=== PATIENT | female | born 1995 | race Caucasian/White ===

== ENCOUNTER 2023-11-07 19:39 | Day surgery (SDC) | payer BC, SELFPAY ==
[2023-11-07] VITALS (12 sets, daily range): BP systolic 98–134; BP diastolic 55–83; BMI 31.5
[2023-11-07 10:07] LABS: % Basophils 0.5 % (0-2); % Eosinophils 0.8 % (0-6); % Immature Granulocytes 0.3 % (0-0.5); % Lymphocytes 10.1 % (20.5-51.1); % Monocytes 5.3 % (1.7-9.3); Absolute Basophils 0.1 10^3/uL (0-0.2); Absolute Eosinophils 0.1 10^3/uL (0-0.7); Absolute Immature Granulocytes 0.1 10^3/uL (0-0.05); Absolute Lymphocytes 1.6 10^3/uL (1.2-3.4); Absolute Monocytes 0.8 10^3/uL (0.1-0.6); Absolute Neutrophils 12.7 10^3/uL (1.4-6.5); Hematocrit 41.4 % (37.0-47.0); Hemoglobin 14.1 g/dL (12.0-16.0); Mean Corp Hgb Conc. 34.1 g/dL (33.0-37.0); Mean Corpuscular Hgb 30.4 pg (27.0-31.0); Mean Corpuscular Volume 89.2 fL (81.0-99.0); Mean Platelet Volume 10.2 fL (7.4-10.4); Nucleated Red Blood Cells % 0 %; Platelet Count 284 10^3/uL (130-400); Red Blood Cell Count 4.64 10^6/uL (4.20-5.40); Red Cell Dist. Width 12.6 % (11.5-14.5); White Blood Cell Count 15.4 10^3/uL (4.8-10.8)
--- NOTE | 2023-11-07 10:19 | ED.GENMED ---
History of Present Illness
<Niharika English PA-C - Last Filed: 11/07/23 17:44>
General
Chief Complaint: Abdominal Pain
Source: patient
Exam Limitations: none
Time Seen by Provider: 11/07/23 09:38
Nursing documentation reviewed up to this point in time: agreed with
Travel History
Have you had any contact with someone who has COVID-19?: No
Do you have any symptoms of coronavirus? Fever > 100 degrees, chills, cough, shortness of breath, sore throat, loss of taste or smell, muscle aches, or headache?: No
History of Present Illness
History of Present Illness:
Patient is a 28-year-old female with no significant past medical history presenting to the emergency department for evaluation of lower abdominal pain. Patient states she noticed periumbilical abdominal pain starting around 10 PM last night with
acute worsening around 2/3 AM. She reports associated nausea and multiple episodes of vomiting. She does report feeling somewhat chilly last night but denies any known fever.
Patient denies any urinary symptoms. Patient denies any chest pain, shortness of breath, diarrhea, constipation. She denies any abnormal vaginal bleeding or discharge. 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
movement. She also endorses somewhat decreased appetite yesterday.
Patient has no history of abdominal surgeries. Patient denies any history of ovarian cysts.
Past History
<Niharika English PA-C - Last Filed: 11/07/23 17:44>
Past History
ED Past Medical History: None
ED Past Surgical History: None
Social History
Tobacco: Non-smoker
Alcohol: None
Drug: None
Personal: Single
Living: with family
Employment: Employed
Family History
Family History: Other (Noncontributory)
Phy Exam
<Niharika English PA-C - Last Filed: 11/07/23 17:44>
Physical Exam
Physical Exam:
General: Mild distress due to pain, nontoxic appearing
Vitals: Vital signs stable, afebrile
HEENT: Atraumatic, normocephalic; pupils equal round and reactive to light bilaterally, extraocular muscle intact, protecting airway, uvula midline
Neck: appears supple, trachea midline
CV: Regular rate and rhythm, heart sounds normal, no evidence of cyanosis
Resp: No evidence of respiratory distress, lungs clear bilaterally
Abd: Soft, significantly tender in lower abdomen worse in right lower quadrant without rebound tenderness or guarding, non-distended; no CVA tenderness
Extremities: No deformities, no evidence of cyanosis or edema
Neuro: alert and oriented; grossly intact
Psych: Normal affect
Skin: Intact, no rashes
Course
<Niharika English PA-C - Last Filed: 11/07/23 17:44>
Orders/Labs/Results
Orders:
Orders
11/07/23 09:50
Test Result ONCE
11/07/23 09:52
CMP [Comprehensive Metabolic Panel] Urgent
Complete Blood Count/With Diff Urgent
HCG, Serum Qualitative Screen Urgent
Lipase Urgent
11/07/23 10:17
0.9% Sodium Chloride 1000 ml [Nss] 1,000 ml IV BOLUS
Ketorolac [Toradol] 15 mg IV NOW STA
Ondansetron Injectable [Zofran] 4 mg IV NOW STA
11/07/23 10:29
US Pelvis W Transvag Combined Urgent
Reason For Exam: right lower abdominal pain; r/o torsion
11/07/23 10:38
Urinalysis Reflex To Culture Urgent
Date Specimen was Collected: 11/07/23
Time Specimen was Collected: 10:34
11/07/23 12:07
0.9% Sodium Chloride 1000 ml [Nss] 1,000 ml IV BOLUS
11/07/23 14:44
CT Abd/Pel (IV only)-DH only Urgent
Comment:
Reason For Exam: RLQ abdominal pain + nausea
11/07/23 16:49
Ondansetron Injectable [Zofran] 4 mg IV NOW STA
11/07/23 17:01
Piperacillin/Tazo 3.375 Gram [Zosyn] 3.375 gram in 50 ml IV NOW
11/07/23 17:11
0.9% Sodium Chloride 1000 ml [Nss] 1,000 ml IV BOLUS
Abnormal Lab Results
11/07/23
09:52
WBC 15.4 H 10^3/uL
(4.8-10.8)
Abs Immat Gran (auto) 0.1 H 10^3/uL
(0-0.05)
Absolute Neuts (auto) 12.7 H 10^3/uL
(1.4-6.5)
Absolute Monos (auto) 0.8 H 10^3/uL
(0.1-0.6)
Neutrophils % 83.0 H %
(42.2-75.2)
Lymphocytes % 10.1 L %
(20.5-51.1)
Glucose 121 H mg/dl
(70-99)
Total Bilirubin 1.8 H mg/dl
(0.2-1.3)
11/07/23 09:52
11/07/23 09:52
Vital Signs
Initial and Last Documented VS:
Initial Vital Signs
Temp Pulse Resp BP Pulse Ox
98.2 F 65 16 126/75 99
11/07/23 08:53 11/07/23 08:53 11/07/23 08:53 11/07/23 08:53 11/07/23 08:53
Last Documented Vital Signs
Temp Pulse Resp BP Pulse Ox
98.1 F 90 16 134/83 100
11/07/23 17:15 11/07/23 17:08 11/07/23 14:21 11/07/23 17:08 11/07/23 14:21
Melvinlt;Migue Israel DO - Last Filed: 11/07/23 10:33>
Orders/Labs/Results
Orders:
Orders
11/07/23 09:50
Test Result ONCE
11/07/23 09:52
CMP [Comprehensive Metabolic Panel] Urgent
Complete Blood Count/With Diff Urgent
HCG, Serum Qualitative Screen Urgent
Lipase Urgent
11/07/23 10:17
0.9% Sodium Chloride 1000 ml [Nss] 1,000 ml IV BOLUS
Ketorolac [Toradol] 15 mg IV NOW STA
Ondansetron Injectable [Zofran] 4 mg IV NOW STA
11/07/23 10:29
US Pelvis W Transvag Combined Urgent
Reason For Exam: right lower abdominal pain; r/o torsion
11/07/23 10:38
Urinalysis Reflex To Culture Urgent
Date Specimen was Collected: 11/07/23
Time Specimen was Collected: 10:34
11/07/23 12:07
0.9% Sodium Chloride 1000 ml [Nss] 1,000 ml IV BOLUS
11/07/23 14:44
CT Abd/Pel (IV only)-DH only Urgent
Comment:
Reason For Exam: RLQ abdominal pain + nausea
11/07/23 16:49
Ondansetron Injectable [Zofran] 4 mg IV NOW STA
11/07/23 17:01
Piperacillin/Tazo 3.375 Gram [Zosyn] 3.375 gram in 50 ml IV NOW
11/07/23 17:11
0.9% Sodium Chloride 1000 ml [Nss] 1,000 ml IV BOLUS
Abnormal Lab Results
11/07/23
09:52
WBC 15.4 H 10^3/uL
(4.8-10.8)
Abs Immat Gran (auto) 0.1 H 10^3/uL
(0-0.05)
Absolute Neuts (auto) 12.7 H 10^3/uL
(1.4-6.5)
Absolute Monos (auto) 0.8 H 10^3/uL
(0.1-0.6)
Neutrophils % 83.0 H %
(42.2-75.2)
Lymphocytes % 10.1 L %
(20.5-51.1)
Glucose 121 H mg/dl
(70-99)
Total Bilirubin 1.8 H mg/dl
(0.2-1.3)
11/07/23 09:52
11/07/23 09:52
Vital Signs
Initial and Last Documented VS:
Initial Vital Signs
Temp Pulse Resp BP Pulse Ox
98.2 F 65 16 126/75 99
11/07/23 08:53 11/07/23 08:53 11/07/23 08:53 11/07/23 08:53 11/07/23 08:53
Last Documented Vital Signs
Temp Pulse Resp BP Pulse Ox
98.1 F 90 16 134/83 100
11/07/23 17:15 11/07/23 17:08 11/07/23 14:21 11/07/23 17:08 11/07/23 14:21
<Rico Duncan, - Last Filed: 11/07/23 17:01>
Orders/Labs/Results
Orders:
Orders
11/07/23 09:50
Test Result ONCE
11/07/23 09:52
CMP [Comprehensive Metabolic Panel] Urgent
Complete Blood Count/With Diff Urgent
HCG, Serum Qualitative Screen Urgent
Lipase Urgent
11/07/23 10:17
0.9% Sodium Chloride 1000 ml [Nss] 1,000 ml IV BOLUS
Ketorolac [Toradol] 15 mg IV NOW STA
Ondansetron Injectable [Zofran] 4 mg IV NOW STA
11/07/23 10:29
US Pelvis W Transvag Combined Urgent
Reason For Exam: right lower abdominal pain; r/o torsion
11/07/23 10:38
Urinalysis Reflex To Culture Urgent
Date Specimen was Collected: 11/07/23
Time Specimen was Collected: 10:34
11/07/23 12:07
0.9% Sodium Chloride 1000 ml [Nss] 1,000 ml IV BOLUS
11/07/23 14:44
CT Abd/Pel (IV only)-DH only Urgent
Comment:
Reason For Exam: RLQ abdominal pain + nausea
11/07/23 16:49
Ondansetron Injectable [Zofran] 4 mg IV NOW STA
11/07/23 17:01
Piperacillin/Tazo 3.375 Gram [Zosyn] 3.375 gram in 50 ml IV NOW
11/07/23 17:11
0.9% Sodium Chloride 1000 ml [Nss] 1,000 ml IV BOLUS
Abnormal Lab Results
11/07/23
09:52
WBC 15.4 H 10^3/uL
(4.8-10.8)
Abs Immat Gran (auto) 0.1 H 10^3/uL
(0-0.05)
Absolute Neuts (auto) 12.7 H 10^3/uL
(1.4-6.5)
Absolute Monos (auto) 0.8 H 10^3/uL
(0.1-0.6)
Neutrophils % 83.0 H %
(42.2-75.2)
Lymphocytes % 10.1 L %
(20.5-51.1)
Glucose 121 H mg/dl
(70-99)
Total Bilirubin 1.8 H mg/dl
(0.2-1.3)
11/07/23 09:52
11/07/23 09:52
Vital Signs
Initial and Last Documented VS:
Initial Vital Signs
Temp Pulse Resp BP Pulse Ox
98.2 F 65 16 126/75 99
11/07/23 08:53 11/07/23 08:53 11/07/23 08:53 11/07/23 08:53 11/07/23 08:53
Last Documented Vital Signs
Temp Pulse Resp BP Pulse Ox
98.1 F 90 16 134/83 100
11/07/23 17:15 11/07/23 17:08 11/07/23 14:21 11/07/23 17:08 11/07/23 14:21
<Niharika English PA-C - Last Filed: 11/07/23 17:44>
MDM/Problems Addressed
Differential Diagnosis Includes:
Appendicitis, diverticulitis, ovarian cyst, pyelonephritis, mesenteric adenitis, UTI, constipation, NA ovarian torsion
MDM/Problems Addressed:
Patient is a 28-year-old female presenting for evaluation of acute onset lower abdominal pain with associated nausea and vomiting. No known fevers. Patient is afebrile with stable vital signs on arrival. Physical exam as document above. She does
have significant tenderness in her lower abdomen worse in right lower quadrant. No rebound tenderness or guarding. No history of prior abdominal surgeries. Given significant tenderness in right lower quadrant�concern for appendicitis or ovarian
etiology. Will check basic labs, lipase, , urine. Will perform pelvic ultrasound first to rule out ovarian torsion and plan to proceed with CAT scan if negative. IV fluids, Zofran, Toradol for pain.
11: 11 AM- In to reassess patient. She is feeling much better following Toradol and Zofran. No episodes of vomiting since arrival to emergency department. Ultrasound pending
2: 30: At patient's bedside to reassess. Still reports improvement of pain than earlier. Abdominal exam remains consistent with prior. Soft but significantly tender in lower abdomen, worse in right lower quadrant. Ultrasound is negative for any
evidence ovarian torsion or other acute pelvis process. Will order CT of abdomen/pelvis.
5:00 p.m: CT scan shows acute appendicitis without any evidence of free air or abscess. Will start IV Zosyn. Discussed with general surgeon. She will go to the OR tonight. IV fluids, IV antibiotics, n.p.o. Discussed with patient. Patient
admitted to general surgery service.
Chronic conditions affecting care:
N/A
Acute Exacerbation and/or Progression of Chronic Illness:
N/A
<Niharika English PA-C - Last Filed: 11/07/23 17:44>
*Radiology
Radiology exam reviewed: preliminary read by ED provider and radiology read reviewed
*Pulse Oximetry
Patient hypoxic: no
*Trim Attacher Interpretation
Rate: Trim Attacher- N/A
*Critical Care Note
Total Time (30-74mins, 75-104mins- exclusive of procedures): Not Applicable
<Niharika English PA-C - Last Filed: 11/07/23 17:44>
Patient Management
Discussion with other providers: Emergency Veterinary Assistant (Dr. Avendaño-General surgery)
Escalation/DeEscalation of care consider admission/obs:
Acute appendicitis�admit to general surgery for appendectomy
<Rico Duncan DO - Last Filed: 11/07/23 17:01>
Update Note
Update Note:
Ultrasound negative. CT reveals appendicitis. Surgical consultation. IV antibiotics. Admit
ED Attending Note
<Niharika English PA-C - Last Filed: 11/07/23 17:44>
-
Portions of this chart may have been created with voice recognition software.� Occasional wrong word or��sound alike� substitutions may have occurred due to the inherent limitations of voice recognition software.
<Migue Israel DO - Last Filed: 11/07/23 10:33>
ED Attending Note
Patient seen and examined by attending physician: Yes
I performed the substantive portion of visit, reviewed & personally made and approve the management plan that is documented in note by myself or REBEL.: Yes
ED Attending Note:
I agree with Nikki's note.
Patient complaining of lower abdominal pain. Pain began last night. Pain is quite significant. Last menstrual period was a week ago. She states it was normal.
General: Awake, Alert, Oriented X3. Appears somewhat uncomfortable
Vitals: unremarkable
Head: Atraumatic
Eyes: Pupils equal, EOMI
Throat: Airway intact, no exudates
Neck: Trachea midline
Lungs: Clear and equal b/l
Heart: Regular rate, no murmurs
Abd: Soft, significant tenderness right lower quadrant, No pulsatile mass
Neuro: Nonfocal
Skin: Warm, dry, no rash
Extremities: pulses equal b/l, no edema
Differential includes ovarian torsion, ruptured ovarian cyst, hemorrhagic ovarian cyst, appendicitis
Will start with an ultrasound to hopefully avoid radiation exposure if this will be diagnostic. If that is nondiagnostic and want to proceed to CAT scan to rule out appendicitis
Discharge Plan
Departure
Patient Disposition: Admit
Date of Disposition: 11/07/23
Time of Disposition: 17:11
Presentation/result/management discussed w/ accepting MD/DO: Dr. Avendaño
Discharge Problem:
Acute appendicitis
Prescriptions:
No Action
No Current Medications
0
Referrals:
NONE,* [Family Provider] -
Interventions
Interventions:
*Risk Screen - Suicide Last Done: 11/07/23 09:41
*General Assessment Last Done: 11/07/23 17:17
*Neglect/Abuse Screening Last Done: 11/07/23 09:41
ED- Fall Risk Assessment Last Done: 11/07/23 17:18
*ED COVID-19 Vaccine History Last Done: 11/07/23 08:53
RT-Tvangu-Kpppzkmzlx Assessment Last Done: 11/07/23 09:56
Discharge Date and Time
Print Language: GERMAN
[2023-11-07 10:21] LABS: HCG, Serum Qualitative Screen Negative
[2023-11-07 10:28] LABS: ALT (SGPT) 19 U/L (0-35); AST (SGOT) 27 U/L (14-36); Albumin 4.6 g/dl (3.5-5.0); Alkaline Phosphatase 96 U/L (38-126); Blood Urea Nitrogen 14 mg/dl (7-17); Calcium 9.9 mg/dl (8.4-10.2); Carbon Dioxide 25 mmol/L (22-30); Chloride 100 mmol/L (98-107); Estimated Creatinine Clearance > 125 ml/min; Glucose 121 mg/dl (70-99); Potassium 4.1 mmol/L (3.5-5.1); Sodium 136 mmol/L (135-145); Total Bilirubin 1.8 mg/dl (0.2-1.3); Total Protein 7.7 g/dl (6.3-8.2); eGFR > 60.00
[2023-11-07] MEDS: ZOFRAN 4 MG IV ×2 (10:33→17:05)
[2023-11-07] MEDS: TORADOL 15 MG IV (10:33)
[2023-11-07] MEDS: NSS 1000 IV ×3 (10:34→17:36)
[2023-11-07 10:43] LABS: Lipase 81 U/L (23-300)
[2023-11-07 10:57] LABS: Urine Albumin Negative (Neg - Trace); Urine Bilirubin Negative (Negative); Urine Character Clear (Clear); Urine Color Yellow; Urine Glucose Negative (Negative); Urine Ketone Negative (Negative); Urine Leukocyte Negative (Negative); Urine Nitrite Negative (Negative); Urine Occult Blood Negative (Negative); Urine Urobilinogen Negative (Neg - 1+)
[2023-11-07] MEDS: ZOSYN 50 IV (17:11)
--- NOTE | 2023-11-07 19:29 | HPS.HSE ---
Family Physician
-
Family Physician: * NONE
Chief Complaint
-
Right upper quadrant pain
History of Present Illness
This is a 28-year-old female presents with a 1 day history of right upper quadrant pain. The patient endorses chills but otherwise denies Fever, Chest Pain, Shortness Of Breath, Nausea, Vomiting, changes in urinary and bowel habits, unintentional
weight loss, jaundice, icterus, acolic stools. Never had a colonoscopy, no history of IBD.
Medical History
Past Medical History
Past Medical History: Reports None
Past Surgical History: Reports None
Social History
Tobacco: Non-smoker
Alcohol: None
Drug: None
Personal: Single
Living: With Family
Family History
Family History: Not pertinent
Allergies / Home Medications
Allergies reflects when Allergies were last updated in [employer].
Home Medications with original date entered in [employer]
Allergy/Medication List:
None
Review of Systems
-
A 12 point ROS was completed and negative except as noted: Yes
Physical Exam
Vital Signs
Vital Signs
Temp Pulse Resp BP Pulse Ox
98.1 F 90 16 134/83 100
11/07/23 17:15 11/07/23 17:08 11/07/23 14:21 11/07/23 17:08 11/07/23 14:21
Physical Exam
General: Well Developed and Obese
HEENT: NormoCephalic
Respiratory: Non Labored Respirations
GI: Soft and Tender (Focally tender to palpation in the right lower quadrant.)
Laboratory Results
-
11/07/23 09:52
11/07/23 09:52
Laboratory Results
Total Bilirubin 1.8 mg/dl (0.2-1.3) H 11/07/23 09:52
AST 27 U/L (14-36) 11/07/23 09:52
ALT 19 U/L (0-35) 11/07/23 09:52
Alkaline Phosphatase 96 U/L (38-126) 11/07/23 09:52
Lipase 81 U/L (23-300) 11/07/23 09:52
Data Reviewed
-
CT Scan: Image Personally Visualized and interpreted, Report Reviewed by me, Discussed with Patient and Discussed with Family
Lab Data: Labs Reviewed by me, Discussed with Physician and Discussed with Family
Impression/Plan
-
IMPRESSION: This is a 28-year-old female who presents with 1 day history of right lower quadrant abdominal pain. Exam, imaging, lab work all consistent with acute appendicitis.
PLAN:
Will plan for a laparoscopic appendectomy in the OR tonight.
N.p.o., IV fluids, IV Zosyn.
Risks/Benefits/Alternatives, expected postoperative course and possible complications (bleeding, infection, injury to surrounding structures, acute/chronic pain) discussed at length. Patient wishes to proceed with surgery. All questions answered.
Consent obtained.
I spent roughly 60 minutes in total for the care of this patient today including direct patient care and counseling, reviewing labs, imaging, coordination of care, as well as documentation.
--- NOTE | 2023-11-07 19:32 | W.SUR.PREOP ---
Pre-Operative Surgical Note
-
I have examined this patient prior to the performance of the scheduled procedure.
The patient's condition is unchanged from the time of the current History and
Physical and the patient is able to undergo the scheduled procedure.
--- NOTE | 2023-11-07 19:32 | W.IMMPOSTOP ---
Surgical Immed Post Op Note
-
Primary Surgeon: Lukas Avendaño MD
Assisting Surgeon: None
Pre-op Diagnosis: Acute appendicitis
Post-op Diagnosis: Same
Procedure Performed: Laparoscopic appendectomy
Anesthesia Type: General
Specimen / Cultures: Appendix
Estimated Blood Loss: 1 cc
Complications: None
Operative Findings: Acute, suppurative, nonperforated appendicitis
POST OP PLAN:
Imaging: None
Labs: Routine AM
Diet: Advance to Regular as tolerated
Analgesia: Tylenol 650mg q6 Andrés, Jazmín 5mg q6 PRN, Dilaudid 0.5mg q2h PRN
Neuro/vascular checks: q4h
AC/AP: Hold Therapeutic AC, Ok for DVT PPx
Activity: Ad Maddy
Wound/Incisions/Drains: Routine
Abx: Antibiotics x 4 days
Dispo: Okay to MA home today, potential discharge tonight if patient amenable pending clinical course.
--- NOTE | 2023-11-07 19:33 | OR.RPT ---
Operative Report
Operative Report
Patient Name: Tacos Albright
: 1995
Date of Operation: 11/07/2023
Preoperative Diagnosis: Acute Appendicitis
Postoperative Diagnosis: Same
Procedure(s):
Laparoscopic Appendectomy
Surgeon(s):
Dr. Avendaño
Hospital Librarian(s):
None
Anesthesia: General
Estimated Blood Loss: 1 cc
Urine Output: None
Drains/Lines/Implants: None
Specimens:
1. Appendix
HPI/Surgical Indications:
This is a 28-year-old female who presents with a 1 day history of abdominal pain. Exam, labs and imaging are consistent with acute appendicitis. Risks/Benefits/Alternatives were discussed at length, and the patient agreed to proceed with surgery.
Findings:
Acute, suppurative non-perforated appendicitis
Procedure Description:
The patient was placed in the supine position, with the left arm tucked, and general anesthesia was induced. The abdomen was prepared and draped in a sterile fashion so as to expose the entire abdomen. A surgical time out was taken. Abdominal access
was obtained with an 12mm infra-umbilical [place] Entry. After confirming no injury on entrance, two additional 5mm ports were placed in the suprapubic area just off midline and in the left lower quadrant. The patient was placed in Trendelenberg with
the right slightly up . The appendix was identified and a window was created in the mesoappendix. The appendix was suppurative and inflamed but not perforated. Using a harmonic energy device, the meso appendix was divided. The base of the appendix
appeared uninvolved and was ligated/divided using two 0-PDS Endoloops and the energy device. The appendix was placed in a specimen retrieval bag. Hemostasis was confirmed and the ports were removed under visualization. The specimen was passed off
the field. The umbilical port was closed with a [id number] 0-PDS and the skin for all three ports was closed with interrupted monocryls and covered with dermabond. The patient was awoken from anesthesia in good condition and transported to the
recovery area.
I was the attending physician and performed the procedure with no assistance. I was present for all portions of the case
Lukas Avendaño MD
[2023-11-07] MEDS: TYLENOL 650 MG PO (20:55)
[2023-11-07] MEDS: ROXICODONE 5 MG PO (20:56)
== END 2023-11-07 21:00 | disposition home or self-care (01) ==
LOC: SDS 19:39
PROVIDERS: Emergency Medicine; Physician Assistant; ATTENDING PHYSICIAN Surgery; EMERGENCY PHYSICIAN Emergency Medicine
DX: K35.80 Unspecified acute appendicitis (principal)
CPT/HCPCS: 44970; 88304; 74177; 76830; 76856; 80053; 81003; 83690; 84703; 85025; 96361; 96365; 96375; 96376; 99285; Q9967